=== PATIENT | female | born 1945 | race African-American/Black ===

== ENCOUNTER 2017-04-30 07:40 | Emergency (ER) | payer OTHER, MEDICARE ==
[2017-04-30] MEDS: IBUPROFEN 600 MG TAB PO (09:44)
== END 2017-04-30 10:05 | disposition home or self-care (01) ==
LOC: M ED 07:40
DX: S20.219A Contusion of unspecified front wall of thorax, initial encounter (principal); V48.0XXA Car driver injured in noncollision transport accident in nontraffic accident, initial encounter; Y92.9 Unspecified place or not applicable; Y93.9 Activity, unspecified; E11.9 Type 2 diabetes mellitus without complications; I10 Essential (primary) hypertension; Z79.84 Long term (current) use of oral hypoglycemic drugs; Z79.899 Other long term (current) drug therapy; Z88.0 Allergy status to penicillin
CPT/HCPCS: 71101